=== PATIENT | male | born 1990 | race African-American/Black ===

== ENCOUNTER 2021-02-20 | Emergency (ER) | payer OTHER ==
[2021-02-20] MEDS ORDERED: MOTRIN800 MG PO (11:30)
== END 2021-02-20 12:15 | DRG 563 ==
DX: S83.92XA Sprain of unspecified site of left knee, initial encounter (principal); X50.0XXA Overexertion from strenuous movement or load, initial encounter; Y93.67 Activity, basketball; Y92.009 Unspecified place in unspecified non-institutional (private) residence as the place of occurrence of the external cause
CPT/HCPCS: L1830